=== PATIENT | male | born 1975 | race Caucasian/White ===

== ENCOUNTER 2025-05-30 19:43 | Emergency (ER) | payer SELFPAY | END 2025-05-30 22:01 | disposition home or self-care (01) | LOC: CSHERS 19:43 | DX: F10.129 Alcohol abuse with intoxication, unspecified (principal); I10 Essential (primary) hypertension; Y90.8 Blood alcohol level of 240 mg/100 ml or more | CPT/HCPCS: 80307; 99284 ==